=== PATIENT | female | born 1960 | race Caucasian/White ===

== ENCOUNTER 2019-01-09 12:15 | Emergency (ER) | payer OTHER ==
[2019-01-09 12:29] VITALS: BP 103/53
--- NOTE | 2019-01-09 12:41 | UC ---
Lower Extremity/Ankle HPI - HPI Summary HPI Summary: 58 yo female plantar flexed right foot walking on a trail this AM unable to bear wt - History of Current Complaint Chief Complaint: UCLowerExtremity Stated Complaint: FOOT INJURY Time Seen by Provider: 01/09/19 12:32 Hx Obtained From: Patient Onset/Duration: Sudden Onset Severity Initially: Moderate Severity Currently: Moderate Pain Intensity: 7 Pain Scale Used: 0-10 Numeric Aggravating Factor(s): Standing, Ambulation Alleviating Factor(s): Rest Able to Bear Weight: No - Allergies/Home Medications Allergies/Adverse Reactions: Allergies Allergy/AdvReac Type Severity Reaction Status Date / Time eggplant Allergy Intermediate Numbness Uncoded 01/09/19 12:29 And Tingling seasonal allergies Allergy Intermediate Runny Nose Uncoded 01/09/19 12:29 PMH/Surg Hx/FS Hx/Imm Hx Previously Healthy: Yes Cancer History: Other - endometrial Ca - Surgical History Surgical History: Yes Surgery Procedure, Year, and Place: tumor removed from rt shoulder 1964;tonsils; wisdom teeth; multiple D & Cs for miscarraiges, polyps uterine; Complete hysterectomy 2011 ( RADICAL HYSTERECTOMY DUE TO ENDOMETRIAL CANCER); sinus surgery; left breast lumpectomy; left breast DUCTAL PAPALOMAS benign; ; tubal ligation - Family History Known Family History: Positive: Hypertension, Non-Contributory - Social History Alcohol Use: Rare Substance Use Type: None Smoking Status (MU): Never Smoked Tobacco Review of Systems All Other Systems Reviewed And Are Negative: Yes Constitutional: Positive: Negative Skin: Positive: Negative Eyes: Positive: Negative ENT: Positive: Negative Respiratory: Positive: Negative Cardiovascular: Positive: Negative Gastrointestinal: Positive: Negative Genitourinary: Positive: Negative Motor: Positive: Negative Neurovascular: Positive: Negative Musculoskeletal: Positive: Arthralgia Neurological: Positive: Negative Psychological: Positive: Negative Physical Exam Triage Information Reviewed: Yes Appearance: Well-Appearing, No Pain Distress, Well-Nourished Vital Signs: Initial Vital Signs Temp 99.7 F 01/09/19 12:26 Pulse 84 01/09/19 12:26 Resp 18 01/09/19 12:26 BP 103/53 01/09/19 12:26 Pulse Ox 100 01/09/19 12:26 Vital Signs Reviewed: Yes Eyes: Positive: Conjunctiva Clear ENT: Positive: Hearing grossly normal. Negative: Nasal drainage, TMs normal, Trismus, Muffled voice Neck: Positive: Supple, Nontender Respiratory: Positive: Lungs clear, Normal breath sounds, No respiratory distress, No accessory muscle use Cardiovascular: Positive: RRR, No Murmur Musculoskeletal: Positive: Other: - see image Neurological: Positive: Alert Psychological Exam: Normal Skin Exam: Normal Images Feet (Multiple View): 1 - pain/tender 2 - swollen/tender Diagnostics - Radiology No standard instances Radiology Interpretation Completed By: Radiologist Summary of Radiographic Findings: Right foot and ankle- no fx Lower Extremity Course/Dx - Differential Dx/Diagnosis Provider Diagnosis: Right foot sprain, Right ankle sprain Discharge ED - Sign-Out/Discharge Documenting (check all that apply): Patient Departure All imaging exams completed and their final reports reviewed: Yes - Discharge Plan Condition: Stable Disposition: HOME Patient Education Materials: Foot Sprain (ED), Ankle Sprain (ED), Walking Boot (ED), Crutch Instructions (ED) Referrals: [facility] [Outside] - 7 Days (if not better) - Billing Disposition and Condition Condition: STABLE Disposition: Home
== END 2019-01-09 14:25 | disposition home or self-care (01) ==
LOC: UCEAST 12:15
DX: S93.601A Unspecified sprain of right foot, initial encounter (principal); S93.401A Sprain of unspecified ligament of right ankle, initial encounter; X50.9XXA Other and unspecified overexertion or strenuous movements or postures, initial encounter; Y92.828 Other wilderness area as the place of occurrence of the external cause; Z85.42 Personal history of malignant neoplasm of other parts of uterus
CPT/HCPCS: 99213; G0463

== ENCOUNTER 2019-02-26 12:18 | Emergency (ER) | payer OTHER ==
--- NOTE | 2019-02-26 12:40 | ED ---
Back Pain - HPI Summary HPI Summary: Patient is a 58-year-old female who presents emergency department for low back pain times several days. Patient notes recent long car trip that she believes exacerbated her back pain. 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 Pt. notes chronic intermittently tingling in hands from carpal tunnel but otherwise denies numbness or weakness in arms and legs. Pt. denies bowel or bladder incontience or retention. Pt. denies saddle parethesias. Pt. otherwise denies fever, abd. pain, cp, sob, urinary sxs. Pt. has been taking tylenol and motrin without improvement. Pt. follows with neurology, Dr. Garcia. - History of Current Complaint Chief Complaint: EDBackInjuryPain Stated Complaint: LOW BACK PAIN PER PT Time Seen by Provider: 02/26/19 12:25 Hx Obtained From: Patient Pain Intensity: 9 - Allergies/Home Medications Allergies/Adverse Reactions: Allergies Allergy/AdvReac Type Severity Reaction Status Date / Time eggplant Allergy Intermediate Numbness Uncoded 01/09/19 12:29 And Tingling seasonal allergies Allergy Intermediate Runny Nose Uncoded 01/09/19 12:29 PMH/Surg Hx/FS Hx/Imm Hx Previously Healthy: Yes Endocrine/Hematology History: Denies: Hx Diabetes, Hx Systemic Lupus Erythematosus, Hx Thyroid Disease Cardiovascular History: Denies: Hx Congestive Heart Failure, Hx Hypertension, Hx Pacemaker/ICD Respiratory History: Denies: Hx Asthma, Hx Chronic Obstructive Pulmonary Disease (COPD) GI History: Denies: Hx Ulcer History: Denies: Hx Dialysis, Hx Renal Disease Musculoskeletal History: Denies: Hx Rheumatoid Arthritis Sensory History: Denies: Hx Hearing Aid Psychiatric History: Denies: Hx Panic Disorder - Cancer History Cancer Type, Location and Year: endometrial CA 2011 Hx Chemotherapy: No Hx Radiation Therapy: No - Surgical History Surgery Procedure, Year, and Place: tumor removed from rt shoulder 1964;tonsils; wisdom teeth; multiple D & Cs for miscarraiges, polyps uterine; Complete hysterectomy 2011 ( RADICAL HYSTERECTOMY DUE TO ENDOMETRIAL CANCER); sinus surgery; left breast lumpectomy; left breast DUCTAL PAPALOMAS benign; ; tubal ligation Infectious Disease History: No Infectious Disease History: Denies: Hx Hepatitis, Hx Human Immunodeficiency Virus (HIV), Traveled Outside the [place] in Last 30 Days - Family History Known Family History: Positive: Hypertension, Non-Contributory - Social History Occupation: Unemployed Lives: With Family Alcohol Use: Rare Substance Use Type: Reports: None Smoking Status (MU): Never Smoked Tobacco Review of Systems Constitutional: Negative Negative: Fever Gastrointestinal: Negative Negative: Abdominal Pain Genitourinary: Negative Negative: dysuria, flank pain, incontinence Positive: Other - Right low back pain Skin: Negative Neurological: Negative Negative: Weakness, Paresthesia, Numbness All Other Systems Reviewed And Are Negative: Yes Physical Exam Triage Information Reviewed: Yes Vital Signs On Initial Exam: Initial Vitals Temp Pulse Resp BP Pulse Ox 97.4 F 105 18 128/74 98 02/26/19 12:19 02/26/19 12:19 02/26/19 12:19 02/26/19 12:19 02/26/19 12:19 Vital Signs Reviewed: Yes Appearance: Positive: Pain Distress - Pt. sitting in chair appers in pain but nontoxic. Difficulty moving around room and getting onto bed. present. Skin: Positive: Warm, Dry Head/Face: Positive: Normal Head/Face Inspection Eyes: Positive: Normal, EOMI Neck: Positive: Supple Musculoskeletal: Positive: Normal, Strength/ROM Intact, Other - 5/5 strength with flexion and dorsiflexion. Positive straight leg on left. Good pedal pulses bilaterally. No midline lumbar tenderness. Pain over right SI joint. Neurological: Positive: Normal, Alert, Oriented to Person Place, Time Psychiatric: Positive: Affect/Mood Appropriate Procedures - Sedation Patient Received Moderate/Deep Sedation with Procedure: No Diagnostics - Vital Signs Vital Signs Temp Pulse Resp BP Pulse Ox 02/26/19 12:19 97.4 F 105 18 128/74 98 - Laboratory Lab Statement: Any lab studies that have been ordered have been reviewed, and results considered in the medical decision making process. Back Pain Course/Dx - Course Course Of Treatment: Patient presenting with right-sided low back pain. She is afebrile. She has no neurological deficits on exam or evidence of cord compression. Suspect musculoskeletal injury and muscle spasm. Patient is concerned with her history of syringomyelia and is concerned she needs a MRI today to rule out compression. Discussed with patient indications for emergent MRI and she does not have any concerning findings today on exam. Attempted to discuss case with patient's neurologist, Dr. Garcia, but she is not in the office today or unavailable. Case was discussed with on-call neurologist, Dr. Rae, who examined patient and the emergency department and agrees there is no need for emergent imaging. He recommends prescribing Zanaflex and Medrol dose pack. Patient to call her neurologist for a close follow-up appointment. We' ll return to ER symptoms change or worsen. - Diagnoses Differential Diagnosis/HQI/PQRI: Positive: Arthritis, Compressive Cord Syndrome , Herniated Disc, Neoplasm, Strain, Sprain Provider Diagnoses: Muscle spasm, Low back pain Discharge ED - Sign-Out/Discharge Documenting (check all that apply): Patient Departure - Discharge Plan Condition: Improved Disposition: HOME Prescriptions: methylPREDNISolone [Medrol] 4 mg PO ONCE #1 tab.ds.pk tiZANidine TAB* [Zanaflex TAB*] 2 mg PO BEDTIME #10 tab Patient Education Materials: Low Back Strain (ED), Muscle Spasm (ED) Referrals: Jessie Parra MD [Primary Care Provider] - Megan Garcia MD [Medical Doctor] - Additional Instructions: Schedule a follow up appointment with Dr. Garcia tomorrow Medication as directed Apply warm compresses Return to ER if symptoms change or worsen - Billing Disposition and Condition Condition: IMPROVED Disposition: Home - Attestation Statements Provider Attestation: I agree w KEREN documentation as above, briefly this is a 58 y/o F w hx syringomyelia p/w back pain. No neuro deficits on exam, requesting MRI. Follows w neuro. Dr. Rae saw patient and agrees no MRI warranted. Robert Baca MD
--- OUTSIDE RECORDS SUMMARY | 2019-02-26 13:06 | XMS REPORT | Continuity of Care Document ---
:1960 External Reference #:[id number] Author Name Blas Jenkins MD (transmitted by agent of provider Janette Butterfield) Address [address] [place] [id number] Care Team Providers Name Role Phone Chaparro Prater MD - Rheumatology Care Team Information Hydraulic Punch Press Operator Candace Benavides M.D. - Family Care Team Information Hydraulic Punch Press Operator [phone] Medicine Problems Active Problems Provider Date Carpal tunnel syndrome Megan Garcia M.D. Onset: 07/30/2013 Note: left > right (EMG/NCS: 06/25/13 and 07/30/13) Skin sensation disturbance Megan Garcia M.D. Onset: 07/30/2013 Degeneration of cervical intervertebral disc Megan Garcia M.D. Onset: 07/30 Spinal cord disease Megan Garcia M.D. Onset: 07/30/2013 Note: C5-T1: syringohydromyelia; + Thoracic Syringomyelia Mononeuropathy of lower limb Blas Jenkins MD Onset: 01/21/2019 Sprain of ankle Blas Jenkins MD Onset: 01/21/2019 Social History Type Date Description Comments Sex Unknown Tobacco Use Start: Unknown Never Smoked Cigarettes ETOH Use Occasionally consumes alcohol Tobacco Use Start: Unknown Patient has never smoked Smoking Status Reviewed: 02/13/19 Patient has never smoked Enjoy Exercising Enjoys exercising regular walker Allergies, Adverse Reactions, Alerts Description No Known Drug Allergies Medications Description No Active Medications Immunizations Description No Information Available Vital Signs Date Vital Result Comment 02/13/2019 10:19am Height 61 inches 5'1" Weight 135.00 lb Heart Rate 89 /min BP Systolic 122 mmHg BP Diastolic 76 mmHg Respiratory Rate 16 /min Body Temperature 97.7 F Pain Level 4 BMI (Body Mass Index) 25.5 kg/m2 01/21/2019 2:37pm Height 61 inches 5'1" Weight 135.00 lb Heart Rate 80 /min BP Systolic 122 mmHg BP Diastolic 64 mmHg BMI (Body Mass Index) 25.5 kg/m2 Results Description No Information Available Procedures Description No Information Available Medical Devices Description No Information Available Encounters Type Date Location Provider Dx Diagnosis Office Visit 01/21/2019 [facility] Blas Jenkins, S93.491A Sprain of other 2:00p at [place] ligament of right ankle, initial encounter G57.91 Unspecified mononeuropathy of right lower limb W19.xxxA Unspecified fall, initial encounter Assessments Date Code Description Provider 02/13/2019 S93.491A Sprain of other ligament of right ankle, Blas Jenkins MD initial encounter 01/21/2019 S93.491A Sprain of other ligament of right ankle, Blas Jenkins MD initial encounter 01/21/2019 G57.91 Unspecified mononeuropathy of right lower limb Blas Jenkins MD 01/21/2019 W19.xxxA Unspecified fall, initial encounter Blas Jenkins MD Plan of Treatment Future Appointment(s):03/30/2019 10:15 am - Blas Jenkins MD at [facility]/13/2019 - CATIA [id number] Sprain of other ligament of right ankle, initial encounterNew Therapy:Physical TherapyFollow up: Follow Up: 6 weeks Functional Status Description No Information Available Mental Status Description No Information Available Referrals Description No Information Available
--- OUTSIDE RECORDS SUMMARY | 2019-02-26 13:06 | XMS REPORT | Continuity of Care Document ---
:1960 External Reference #:[id number] Author Name Blas Jenkins MD (transmitted by agent of provider Liliana Quevedo) Address [address] [place] [id number] Care Team Providers Name Role Phone Chaparro Prater MD - Rheumatology Care Team Information Public Health Nurse Candace Benavides M.D. - Family Care Team Information Public Health Nurse Medicine Problems Active Problems Provider Date Carpal [...] Patient has never smoked Smoking Status Reviewed: 01/21/19 Patient has never smoked Enjoy Exercising Enjoys exercising regular walker Allergies, Adverse Reactions, Alerts Description No Known Drug Allergies Medications Active Medications SIG Qnty Indications Ordering Provider Date Ibuprofen 3 caps po as Unknown 200mg Capsules needed Immunizations Description No Information Available Vital Signs Date Vital Result Comment 01/21/2019 2:37pm Height 61 inches 5'1" Weight 135.00 lb Heart Rate 80 /min BP Systolic 122 mmHg BP Diastolic 64 mmHg BMI (Body Mass Index) 25.5 kg/m2 09/14/2016 9:05am Height 61 inches 5'1" Weight 133.00 lb Heart Rate 108 /min BP Systolic Sitting 120 mmHg BP Diastolic Sitting 70 mmHg Respiratory Rate 14 /min BMI (Body Mass Index) 25.1 kg/m2 Results Description No Information Available Procedures Description No Information Available Medical Devices Description No Information Available Encounters Description No Information Available Assessments Date Code Description Provider 01/21/2019 S93.491A Sprain of other ligament of right ankle, Blas Jenkins MD initial encounter 01/21/2019 G57.91 Unspecified mononeuropathy of right lower limb Blas Jenkins MD Plan of Treatment Future Appointment(s):02/03/2019 1:30 pm - Blas Jenkins MD at [facility]01/21/2019 - Blas Jenkins [id number] Sprain of other ligament of right ankle, initial encounterFollow up:Follow Up: 2 rkkfsS61.91 Unspecified mononeuropathy of right lower limb Functional Status Description No Information Available Mental Status Description No Information Available Referrals Description No Information Available
[2019-02-26] MEDS ORDERED: HYDROcodone/ACETAMIN 5-325 MG* 1 TAB PO ONE (13:10)
[2019-02-26] MEDS: Diazepam TAB(*) 5 MG PO ONE ×2 (13:40→13:44)
[2019-02-26 15:32] VITALS: BP 131/65
--- NOTE | 2019-02-26 16:40 | CONS ---
NEUROLOGY CONSULTATION NOTE: DATE OF CONSULT: 02/26/19 - EMERGENCY DEPT CONSULTED BY: CATHY Staples REASON FOR CONSULT: Back pain. CHIEF COMPLAINT: Back pain. HISTORY OF PRESENT ILLNESS: Ms. Fine is a 58-year-old right-handed female with history of cervical and thoracic syringomyelia, it was incidentally found on a MRI of the C and T-spine; carpal tunnel syndrome; orthostatic hypotension, who presented to [facility] ER due to low back pain. The patient stated that her daughter was recently diagnosed with recurrence of a mesenteric tumor and she has been driving back and forth to [place]. She is taking about 12- hour trips in a 1-2 day period. The patient's last trip was this week, Saturday- Saturday. After coming back, she noticed that she has severe low back pain. The pain is very intense and feels like she has got "spasms and contractions" of the muscle in the low back. The pain is 8/10 in severity, but occasionally decreases to 5/10 with ibuprofen 800 mg. The pain also can trigger some of her other symptoms such as neck pain and numbness in the legs as well as the hands. She denied any impairment in her bowel or bladder functions. She has had urinary leakage and uses a pad, but this has been ongoing for years. She also complains of chronic numbness and tingling in the hands, severe pain in the scapula, pain in the neck, nerve pain in the feet, edema in the feet. Repetitive movements of the right arm will cause elbow swelling. Increase in activity can cause bouts of sciatica. She also complains of intermittent low blood pressure. She has had episodes of loss of consciousness in the past. The patient stated that she fell and suffered a sprain of the right foot and ankle mid December when she was going [place] stairs in [place] nature trail. She did not hit her head. She did not lose consciousness. She had to wear a boot for 5 weeks and then was placed on a brace for a few weeks. She could not drive to [facility] or [place] for her daughter's tumor evaluation until recently when she is driving her daughter back and forth. She is having trouble traveling due to the pains. The patient's goal of care today is to obtain some medications to relieve the back pain. She is also requesting an MRI of the L-spine. The patient follows up with Dr. Garcia for multiple nonspecific neurological complaints as well as carpal tunnel syndrome. PAST MEDICAL HISTORY: As mentioned in the HPI. MEDICATIONS: 1. Loratadine 10 mg p.o. daily. 2. Ibuprofen 800 mg p.o. every 6 hours as needed. ALLERGIES: EGGPLANT and seasonal allergies. FAMILY HISTORY: No family history of stroke or seizures. SOCIAL HISTORY: The patient is . She denied any tobacco or alcohol use. 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 She stopped working to care for her daughter, who has a genetic disorder with a complete deletion of the APC genes causing abdominal tumors. REVIEW OF SYSTEMS: A 14-point review of systems was obtained and otherwise negative except for what was mentioned in the HPI. PHYSICAL EXAM: Vital Signs: Temperature of 97.4, pulse of 105, respiratory rate of 18, oxygen saturation of 98%, blood pressure of 128/74. General: Well - nourished, well-developed female, in no acute distress. Head: Atraumatic, normocephalic without any obvious abnormality. Neck is supple and symmetrical with no carotid bruits. Cardiovascular: Regular rate and rhythm with normal S1 , S2. Pulmonary: Clear to auscultation bilaterally with no wheezing or rhonchi. Extremities: Normal range of motion with no cyanosis. No hammertoes or high arches. Skin: No skin lesions or lacerations. Spine: She has point tenderness in the lumbar spine between the right paraspinal muscles between L3- L4. There was reproducible pain, but not radiating pain. Straight leg raise was negative bilaterally. Psych: Affect is broad, normal mood. Easy to establish rapport. She is very pleasant. Neurological Examination: Mental Status: Awake, alert, and oriented to person, place, time, and general circumstances. Speech and language including repetition and comprehension were assessed and found to be normal. There is no evidence of aphasia or dysarthria. Cranial Nerves: Pupils are equal, round, and reactive to light. Extraocular muscles are intact. There is no facial asymmetry. Tongue is symmetric and midline with no atrophy or fasciculation. Motor Examination: 5/5 strength in the upper and lower extremities specifically to hip flexion and extension, knee flexion and extension, and ankle dorsiflexion and plantarflexion bilaterally. She has slightly increased tone in both lower extremities. Reflexes 3+ throughout the upper and lower extremities with downgoing plantar responses bilaterally. Coordination: Normal nfthbe-[id number] and heel-to- harley testing bilaterally. Gait: Antalgic gait due to low back pain. ASSESSMENT AND RECOMMENDATIONS: Ms. Davina Fine is a 58-year-old right- handed female with history of cervical and thoracic syringomyelia, who presents with localized right-sided low back pain. On examination, the patient has point tenderness with reproducible pain in the lumbar spine specifically between L3-L4. She has no radiating pain, impairment in her bowel or bladder function, sensory abnormality, or reflex asymmetry. 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 She has no evidence of new focal neurological deficits on examination. Overall, I suspect the patient has a paraspinal muscle sprain causing the localized pain in the low back. I do not suspect that she has any lumbar spine disease. I reviewed imaging from 2013 where she has had a normal lumbar spine MRI. She has not had any major trauma since then other than the fall that she had spraining her ankle on the right last month. The patient is requesting an MRI; however, I did inform her that before we proceed with an MRI, since her neurological examination is benign, I would prefer to treat her pain with steroids as well as tizanidine and then following up with Dr. Garcia for an EMG nerve conduction study and an MRI of the lumbar spine if it is needed. We reviewed the side effects of tizanidine. Hypotension is a side effect. The patient has history of orthostatic hypotension. Therefore, I recommend she takes the medication at night and only to take 2 mg which is a fairly low dose. We also discussed the side effects of low-dose Medrol Dosepak, which will help reducing inflammation. She should not mix ibuprofen with the Medrol Dosepak. Some of the side effects of steroids include, but are not limited to lower extremity edema, irritability, agitation, peptic ulcer disease. I do not recommend taking steroids for longer than 7 days. If her symptoms worsen or she develops focal weakness or impairment in her bowel or bladder function, she should come back to the ER immediately for further evaluation. I discussed these recommendations with the patient. The patient verbalized understanding and was very grateful for the evaluation. [id number]/[facility] #: [id number] [facility] HOSPITALRadha
== END 2019-02-26 15:24 | disposition home or self-care (01) ==
LOC: ED 12:18
DX: M54.5 Low back pain (principal); M62.838 Other muscle spasm; Z90.710 Acquired absence of both cervix and uterus; Z85.89 Personal history of malignant neoplasm of other organs and systems; Z79.899 Other long term (current) drug therapy
CPT/HCPCS: 99282; A9270-GY